=== PATIENT | male | born 1950 | race Hispanic/Latino ===

== ENCOUNTER → 2017-10-27 | Outpatient (CLI) | payer MEDICARE ==
--- NOTE | 2017-10-27 13:28 | Diagnostic Imaging Report ---
PROCEDURE:X-RAY PARANASAL SINUSES, COMPLETE COMPARISON:None. INDICATIONS:cough drainage FINDINGS: The paranasal sinuses are clear. No fluid levels are identified. No expansile or destructive osseous lesions are seen. No evidence of fracture. CONCLUSION: No radiographic evidence of acute sinusitis. Dictated by: Favian Charlton M.D. on 10/27/2017 at 13:38 Electronically approved by: Favian Charlton M.D. on 10/27/2017 at 13:38
--- NOTE | 2017-10-27 13:34 | Diagnostic Imaging Report ---
PROCEDURE: Frontal and lateral views of the chest. COMPARISON: None. INDICATIONS: COUGH FINDINGS: Lines/tubes: None. Lungs: The lungs are well inflated and clear. There is no evidence of pneumonia or pulmonary edema. Pleura: There is no pleural effusion or pneumothorax. Heart and mediastinum: The heart and the mediastinum are normal. Bones: No acute bony abnormality. IMPRESSION: No acute radiographic abnormality. Dictated by: Favian Charlton M.D. on 10/27/2017 at 13:44 Electronically approved by: Favian Charlton M.D. on 10/27/2017 at 13:44
== END ==
LOC: RAD 11:55
PROVIDERS: ATTEND Family Medicine
DX: R05 Cough (principal)
CPT/HCPCS: 70220; 71046

== ENCOUNTER → 2021-01-15 | Day surgery (SDC) | payer MEDICARE ==
[2021-01-13 14:02] LABS: BASOPHILS % 0.3 % (0.0-1.0); EOSINOPHILS # (AUTO) 0.2 (0.0-0.4); EOSINOPHILS % 2.6 % (0.0-6.0); HEMOGLOBIN 14.7 g/dL (14.0-18.0); LYMPHOCYTES # (AUTO) 1.9 (1.0-3.2); LYMPHOCYTES % 31.4 % (18.0-39.1); MEAN CORPUSCULAR HEMOGLOBIN 32.8 pg (28-32); MEAN CORPUSCULAR VOLUME 93.8 fL (81-99); MONOCYTES # (AUTO) 0.6 (0.2-0.8); MONOCYTES % 9.7 % (4.4-11.3); NEUTROPHILS # (AUTO) 3.4 (2.1-6.9); NEUTROPHILS % 55.7 % (38.7-80.0); PLATELET COUNT 158 x10e3/uL (140-360); RED BLOOD COUNT 4.48 x10e6/uL (4.3-5.7); RED CELL DISTRIBUTION WIDTH 11.9 % (11.7-14.4)
[2021-01-13 14:27] LABS: INR 0.91; PROTHROMBIN TIME 12.8 seconds (11.9-14.5)
[2021-01-13 14:28] LABS: PARTIAL THROMBOPLASTIN TIME 26.9 seconds (23.8-35.5)
[~2021-01-15] MED LIST: BUPIVACAINE HCL 0.5% INJ 30 ML VIAL INJ ONE; CEFAZOLIN SOD 1 GM/NS 50ML 100 ML IV ONE; COREG12.5 MG PO; DEXAMETHASONE SOD PHOS INJ 4 MG/ML VIAL ONE; HYDROCODON-ACE1 EA12 PO; LIDOCAINE HCL 2% LOCAL INJ 5 ML SDV VIAL INJ ONE; LOSARTAN POTASS25 MG PO; ONDANSETRON HCL INJ 2MG/ML 2ML 2 MG/ML VIAL ONE; POVIDONE IODINE 0.05% 0.05 % ML PO ONE; PROPOFOL IV EMULSION 10 MG/ML 20 ML VIAL ONE; SEVOFLURANE INHAL SOLN 250 ML PEN BTL ONE
[2021-01-15 11:40] VITALS: BP 124/68
== END | disposition home or self-care (01) ==
LOC: OR 08:11
PROVIDERS: ATTEND Neurological Surgery
DX: G56.01 Carpal tunnel syndrome, right upper limb (principal); G47.33 Obstructive sleep apnea (adult) (pediatric); K21.9 Gastro-esophageal reflux disease without esophagitis; E78.5 Hyperlipidemia, unspecified; I10 Essential (primary) hypertension; Z88.6 Allergy status to analgesic agent; Z01.810 Encounter for preprocedural cardiovascular examination; Z01.812 Encounter for preprocedural laboratory examination; Z01.818 Encounter for other preprocedural examination; Z20.822 Contact with and (suspected) exposure to COVID-19; Z68.30 Body mass index [BMI] 30.0-30.9, adult
CPT/HCPCS: 36415; 64721; 71046; 85025; 85610; 85730; 93005; J0690; J1100; J2001; J2405; J2704; U0002

== ENCOUNTER → 2022-11-19 | Outpatient (CLI) | payer MEDICARE ==
[~2022-11-19] MED LIST changes: -BUPIVACAINE HCL 0.5% INJ 30 ML VIAL INJ ONE; -CEFAZOLIN SOD 1 GM/NS 50ML 100 ML IV ONE; -DEXAMETHASONE SOD PHOS INJ 4 MG/ML VIAL ONE; -LIDOCAINE HCL 2% LOCAL INJ 5 ML SDV VIAL INJ ONE; -ONDANSETRON HCL INJ 2MG/ML 2ML 2 MG/ML VIAL ONE; -POVIDONE IODINE 0.05% 0.05 % ML PO ONE; -PROPOFOL IV EMULSION 10 MG/ML 20 ML VIAL ONE; -SEVOFLURANE INHAL SOLN 250 ML PEN BTL ONE
== END ==
LOC: CARD 08:14
PROVIDERS: ATTEND Family Medicine
DX: I70.212 Atherosclerosis of native arteries of extremities with intermittent claudication, left leg (principal)
CPT/HCPCS: 93925